=== PATIENT | male | born 1970 | race Caucasian/White ===

== ENCOUNTER 2019-06-30 22:23 | Emergency (ER) | payer MEDICAID ==
[~2019-06-30] VITALS: Ht 177.8 cm; Wt 94.0 kg
[2019-06-30] MEDS ORDERED: normal saline 1000ML IV soln IVB ONE (22:55)
[2019-06-30] MEDS ORDERED: ondansetron/PF 4mg/2ml inj IV ONE (22:55)
[2019-06-30 23:04] LABS: BASOPHILS # (AUTO) 0.1 X10'3 (0-0.2); BASOPHILS % (AUTO) 0.6 % (0-1); EOSINOPHILS # (AUTO) 0.2 X10'3 (0-0.9); EOSINOPHILS % (AUTO) 1.2 % (0-6); HEMATOCRIT 49.1 % (42.0-52.0); HEMOGLOBIN 16.9 g/dl (14.0-17.9); LYMPHOCYTES # (AUTO) 1.6 X10'3 (1.1-4.8); LYMPHOCYTES % (AUTO) 11.7 % (21-51); MEAN CORPUSCULAR HGB CONC 34.5 g/dL (33.0-36.5); MEAN CORPUSCULAR VOLUME 95.5 FL (78-98); MEAN PLATELET VOLUME 9.6 FL (7.4-10.4); MONOCYTES # (AUTO) 1.6 X10'3 (0-0.9); MONOCYTES % (AUTO) 11.8 % (2-12); NEUTROPHILS # (AUTO) 10.1 X10'3 (1.8-7.7); NEUTROPHILS % (AUTO) 74.7 % (42-75); PLATELET COUNT 349 X10'3 (140-440); RED BLOOD COUNT 5.14 X10'6 (4.70-6.10); RED CELL DISTRIBUTION WIDTH 14.4 % (11.5-14.5); WHITE BLOOD COUNT 13.6 X10'3 (4.5-11.0)
[2019-06-30 23:15] LABS: ALANINE AMINOTRANSFERASE 71 U/L (12-78); ALBUMIN 4.1 G/DL (3.4-5.0); ALBUMIN/GLOBULIN RATIO 0.9 (1.1-1.5); ALKALINE PHOSPHATASE 65 IU/L (46-116); ANION GAP 10 (8-16); ASPARTATE AMINO TRANSFERASE 58 U/L (10-37); BILIRUBIN,TOTAL 0.4 MG/DL (0.1-1.0); BLOOD UREA NITROGEN 15 MG/DL (7-18); BUN/CREATININE RATIO 16.3 (5.4-32.0); CALCIUM 9.4 MG/DL (8.5-10.1); CHLORIDE 105 MMOL/L (99-107); CREATININE 0.92 MG/DL (0.60-1.10); GLUCOSE 109 MG/DL (70-104); LIPASE 88 U/L (73-393); POTASSIUM 4.3 MMOL/L (3.5-5.1); SODIUM 139 MMOL/L (135-145); TOTAL CARBON DIOXIDE 23.8 MMOL/L (24-32); TOTAL PROTEIN 8.6 G/DL (6.4-8.2); eGFR 87 ML/MIN
[2019-06-30 23:47] LABS: CLARITY,URINE CLEAR (Clear); COLOR,URINE YELLOW (Yellow); GLUCOSE, URINE NEGATIVE (Neg); KETONES,URINE NEGATIVE (Neg); LEUKOCYTE ESTERASE ,URINE NEGATIVE (Neg); NITRITES, URINE NEGATIVE (Neg); OCCULT BLOOD,URINE NEGATIVE (Neg); PROTEIN,URINE NEGATIVE (Neg); UROBILINOGEN,URINE 0.2 E.U/dL (0.2-1.0)
[2019-06-30 23:48] LABS: UA COLLECTION TYPE CLN CATCH MIDSTREAM
[2019-07-01] MEDS ORDERED: ONDA8TAB13 PO (00:03)
[2019-07-01 00:13] VITALS: BP 132/88
== END 2019-07-01 00:20 | disposition home or self-care (01) ==
LOC: ER 22:23
DX: E86.0 Dehydration (principal); R10.13 Epigastric pain; R19.7 Diarrhea, unspecified; R11.2 Nausea with vomiting, unspecified; R10.10 Upper abdominal pain, unspecified; F10.99 Alcohol use, unspecified with unspecified alcohol-induced disorder; Z87.891 Personal history of nicotine dependence; Z79.899 Other long term (current) drug therapy; Y90.9 Presence of alcohol in blood, level not specified
CPT/HCPCS: 36415; 80053; 81003; 83690; 85025; 96361; 96374; 99283; J2405; J7030

== ENCOUNTER 2019-09-28 08:35 | Emergency (ER) | payer MEDICAID ==
[~2019-09-28] VITALS: Ht 180.3 cm; Wt 95.5 kg
[~2019-09-28 08:35] MED LIST: ONDA8TAB13 PO
[2019-09-28 08:36] VITALS: BP 152/106
--- NOTE | 2019-09-28 09:15 | NUR ---
Patient seen and assessed by provider.
[2019-09-28] MEDS ORDERED: CLIN-97 PO (09:22)
[2019-09-28] MEDS ORDERED: acetaminophen 325mg tablet PO ONE (09:25)
== END 2019-09-28 09:33 | disposition home or self-care (01) ==
LOC: ER 08:36
DX: K04.01 Reversible pulpitis (principal); Z98.890 Other specified postprocedural states; Z72.89 Other problems related to lifestyle; Z79.2 Long term (current) use of antibiotics
CPT/HCPCS: 99283

== ENCOUNTER 2021-12-17 07:33 | Emergency (ER) | payer MEDICAID ==
[~2021-12-17] VITALS: Ht 177.8 cm; Wt 97.7 kg
[~2021-12-17 07:33] MED LIST changes: +CLIN-97 PO
[2021-12-17 07:39] VITALS: BP 164/110
== END 2021-12-17 08:42 | disposition home or self-care (01) ==
LOC: ER 07:34
DX: M25.571 Pain in right ankle and joints of right foot (principal)
CPT/HCPCS: 99281

== ENCOUNTER 2023-01-14 19:27 | Emergency (ER) | payer MEDICAID ==
[~2023-01-14] VITALS: Ht 180.3 cm; Wt 91.8 kg
[2023-01-14 21:19] VITALS: BP 120/88; PULSE 86; RESP 20; TEMP 97.7; O2SAT 99
[2023-01-15] MEDS ORDERED: cephalexin 500mg capsule PO ONE (00:25)
[2023-01-15] MEDS ORDERED: sulfamethoxazole/trimethoprim DS (800/160mg) tablet PO ONE (00:25)
[2023-01-15] MEDS ORDERED: CEPH-585 PO (00:28)
[2023-01-15] MEDS ORDERED: SULF1TAB49 PO (00:28)
== END 2023-01-15 00:38 | disposition home or self-care (01) ==
LOC: ER 19:28
DX: L03.113 Cellulitis of right upper limb (principal); Z79.2 Long term (current) use of antibiotics
CPT/HCPCS: 99283

== ENCOUNTER 2023-07-06 13:37 | Inpatient (IN) | payer MEDICAID ==
[~2023-07-06] VITALS: Ht 182.9 cm; Wt 92.9 kg
[~2023-07-06 13:37] MED LIST changes: +CEPH-585 PO
[2023-07-06 14:02] LABS: MEAN CORPUSCULAR HEMOGLOBIN 32.1 PG (27.0-31.0)
[2023-07-06 14:03] LABS: BASOPHILS # (AUTO) 0.1 X10'3 (0-0.2); BASOPHILS % (AUTO) 0.8 % (0-1); EOSINOPHILS % (AUTO) 0.2 % (0-6); HEMATOCRIT 42.6 % (42.0-52.0); HEMOGLOBIN 14.4 g/dl (14.0-17.9); LYMPHOCYTES # (AUTO) 1.5 X10'3 (1.1-4.8); LYMPHOCYTES % (AUTO) 15.5 % (21-51); MEAN CORPUSCULAR HGB CONC 33.9 g/dL (33.0-36.5); MEAN CORPUSCULAR VOLUME 94.7 FL (78-98); MEAN PLATELET VOLUME 9.3 FL (7.4-10.4); MONOCYTES # (AUTO) 1.3 X10'3 (0-0.9); MONOCYTES % (AUTO) 13.1 % (2-12); NEUTROPHILS # (AUTO) 6.8 X10'3 (1.8-7.7); NEUTROPHILS % (AUTO) 70.4 % (42-75); PLATELET COUNT 144 X10'3 (140-440); RED CELL DISTRIBUTION WIDTH 15.9 % (11.5-14.5); WHITE BLOOD COUNT 9.6 X10'3 (4.5-11.0)
[2023-07-06 14:26] LABS: ALBUMIN 3.6 G/DL (3.4-5.0); ANION GAP 20 (8-16); BLOOD UREA NITROGEN 15 MG/DL (7-18); BUN/CREATININE RATIO 15.6 (10.0-20.0); CALCIUM 8.5 MG/DL (8.5-10.1); CHLORIDE 102 MMOL/L (99-107); CREATININE 0.96 MG/DL (0.60-1.10); GLUCOSE 156 MG/DL (70-104); PRO BRAIN NATRIURETIC PEPTIDE 104 PG/ML (0-125); SODIUM 139 MMOL/L (135-145); TOTAL CARBON DIOXIDE 17.1 MMOL/L (24-32); eCRCL 95 ML/MIN; eGFR 82 ML/MIN
[2023-07-06 14:28] LABS: POTASSIUM 3.9 MMOL/L (3.5-5.1)
[2023-07-06] MEDS: ondansetron/PF 4mg/2ml inj IV ONE (14:35)
[2023-07-06] MEDS: LORazepam 2 mg/ml vial IV ONE (14:36)
[2023-07-06] MEDS: normal saline 1000ml 1,000 ML IV ONE ×3 (14:36→14:52)
[2023-07-06] MEDS: naloxone 0.4 mg/ml inj IV ONE (14:46)
[2023-07-06 15:36] LABS: BILIRUBIN,URINE NEGATIVE (Neg); CLARITY,URINE CLEAR (Clear); COLOR,URINE YELLOW (Yellow); GLUCOSE, URINE NEGATIVE (Neg); KETONES,URINE 40 mg/dl (Neg); LEUKOCYTE ESTERASE ,URINE NEGATIVE (Neg); NITRITES, URINE NEGATIVE (Neg); OCCULT BLOOD,URINE SMALL (Neg); PROTEIN,URINE 30 mg/dl (Neg); UROBILINOGEN,URINE 0.2 E.U/dL (0.2-1.0)
[2023-07-06] MEDS ORDERED: iohexol 350MG/ML 100ml bottle IV ONE (15:52)
[2023-07-06 16:21] LABS: UA COLLECTION TYPE CLN CATCH MIDSTREAM
[2023-07-06 16:26] LABS: BACTERIA,URINE NONE SEEN /HPF (Neg); RBC,URINE 0-2 /HPF (0-2); SQUAMOUS EPITHELIAL CELL,UR NONE SEEN /LPF (FEW)
[2023-07-06 16:27] LABS: WBC,URINE 0-4 /HPF (0-4)
[2023-07-06] MEDS: azithromycin/NS 500mg/250ml 250 ML IV SCH (18:07)
[2023-07-06] MEDS: CefTRIAXone 2gm/D5W 50ml BAG 50 ML IV SCH (18:08)
[2023-07-06] MEDS ORDERED: magnesium Cl slow-release 64mg tablet PO PRN (18:20)
[2023-07-06] MEDS ORDERED: ondansetron/PF 4mg/2ml inj IV PRN (18:20)
[2023-07-06] MEDS ORDERED: haloperidol lactate 5mg/ml inj IM PRN (18:20)
[2023-07-06] MEDS ORDERED: acetaminophen 325mg tablet PO PRN (18:20)
[2023-07-06] MEDS ORDERED: metoclopramide 5 mg/ml inj IV PRN (18:20)
[2023-07-06] MEDS ORDERED: mag hydrox/Alum hydrox/simeth 30ml oral suspension PO PRN (18:20)
[2023-07-06] MEDS ORDERED: potassium Cl 20 mEq SR tablet PO PRN (18:20)
[2023-07-06] MEDS ORDERED: dextrose 50%-water 50ml dispensing syringe IV PRN (18:20)
[2023-07-06] MEDS: nicotine 21mg patch - 24 hr TD SCH (18:20)
[2023-07-06] MEDS ORDERED: magnesium hydroxide 30ml (MOM) UD suspension PO PRN (18:20)
[2023-07-06] MEDS ORDERED: magnesium 2GM in 50ml NS 50 ML IV PRN (18:20)
[2023-07-06] MEDS ORDERED: magnesium 4gm in 100ml NS 100 ML IV PRN (18:20)
[2023-07-06] MEDS ORDERED: potassium Cl 40MEQ/1/2NS 520ml 520 ML IV PRN (18:20)
[2023-07-06 18:23] LABS: ALANINE AMINOTRANSFERASE 85 U/L (12-78); ALBUMIN/GLOBULIN RATIO 0.8 (1.1-1.5); ALKALINE PHOSPHATASE 67 IU/L (46-116); ASPARTATE AMINO TRANSFERASE 106 U/L (10-37); BILIRUBIN,DIRECT 0.2 MG/DL (0-0.3); BILIRUBIN,TOTAL 1.1 MG/DL (0.1-1.0)
[2023-07-06 19:06] LABS: URINE AMPHETAMINE SCREEN POSITIVE (Neg); URINE BARBITUATE SCREEN NEGATIVE (Neg); URINE BENZODIAZEPINES SCREEN NEGATIVE (Neg); URINE CANNABINOID SCREEN NEGATIVE (Neg); URINE COCAINE SCREEN NEGATIVE (Neg); URINE METHADONE SCREEN NEGATIVE (Neg); URINE OPIATE SCREEN NEGATIVE (Neg); URINE PHENCYCLIDINE SCREEN NEGATIVE (Neg)
[2023-07-06 19:13] LABS: MAGNESIUM 1.6 MG/DL (1.5-2.4); POTASSIUM 3.2 MMOL/L (3.5-5.1)
[2023-07-06] MEDS: K and/or MAG REPLACEMENT MC SCH (20:00)
[2023-07-06] MEDS: docusate sod 100mg capsule PO SCH (20:00)
[2023-07-06] MEDS: normal saline 1000ml 1,000 ML IV SCH (20:20)
[2023-07-06] MEDS: LORazepam 2 mg/ml vial IV PRN (20:21)
[2023-07-06] MEDS: heparin, porcine 5000 units/ml vial SQ SCH (20:21)
[2023-07-06] MEDS: thiamine 100mg/ml 2ml inj. IV SCH (20:21)
[2023-07-06] MEDS: potassium Cl 20 mEq SR tablet PO PRN (20:22)
[2023-07-07] VITALS (8 sets, daily range): BP systolic 130–157; BP diastolic 83–102; PULSE 83–103; RESP 14–19; TEMP 97.9–98.6; O2SAT 94–99
[2023-07-07] MEDS: HYDROcodone/acetaminophen 5mg/325mg tablet PO PRN (01:23)
[2023-07-07 07:01] LABS: BASOPHILS % (AUTO) 0.7 % (0-1); EOSINOPHILS # (AUTO) 0.1 X10'3 (0-0.9); EOSINOPHILS % (AUTO) 1.2 % (0-6); LYMPHOCYTES # (AUTO) 1.4 X10'3 (1.1-4.8); LYMPHOCYTES % (AUTO) 20.6 % (21-51); MEAN CORPUSCULAR HEMOGLOBIN 32.2 PG (27.0-31.0); MEAN CORPUSCULAR HGB CONC 34.2 g/dL (33.0-36.5); MEAN CORPUSCULAR VOLUME 94.3 FL (78-98); MEAN PLATELET VOLUME 9.4 FL (7.4-10.4); MONOCYTES # (AUTO) 1.1 X10'3 (0-0.9); MONOCYTES % (AUTO) 15.7 % (2-12); NEUTROPHILS # (AUTO) 4.2 X10'3 (1.8-7.7); NEUTROPHILS % (AUTO) 61.8 % (42-75); PLATELET COUNT 104 X10'3 (140-440); RED BLOOD COUNT 4.03 X10'6 (4.70-6.10); RED CELL DISTRIBUTION WIDTH 15.3 % (11.5-14.5); WHITE BLOOD COUNT 6.8 X10'3 (4.5-11.0)
[2023-07-07 07:36] LABS: ALANINE AMINOTRANSFERASE 70 U/L (12-78); ALBUMIN 2.9 G/DL (3.4-5.0); ALBUMIN/GLOBULIN RATIO 0.7 (1.1-1.5); ALKALINE PHOSPHATASE 55 IU/L (46-116); ANION GAP 10 (8-16); ASPARTATE AMINO TRANSFERASE 100 U/L (10-37); BILIRUBIN,TOTAL 1.5 MG/DL (0.1-1.0); BLOOD UREA NITROGEN 9 MG/DL (7-18); BUN/CREATININE RATIO 13.8 (10.0-20.0); CALCIUM 7.6 MG/DL (8.5-10.1); CHLORIDE 104 MMOL/L (99-107); CREATININE 0.65 MG/DL (0.60-1.10); GLUCOSE 94 MG/DL (70-104); MAGNESIUM 2.1 MG/DL (1.5-2.4); POTASSIUM 3.3 MMOL/L (3.5-5.1); SODIUM 137 MMOL/L (135-145); TOTAL CARBON DIOXIDE 22.7 MMOL/L (24-32); eCRCL 144 ML/MIN; eGFR > 90 ML/MIN
[2023-07-07] MEDS: folic acid 1mg/0.2ml inj IV SCH (08:00)
[2023-07-07] MEDS: lisinopril 10 MG tablet PO SCH (08:39)
[2023-07-07] MEDS: HYDROcodone/acetaminophen 10/325mg tab PO PRN (13:59)
[2023-07-07] MEDS: LORazepam 2 mg/ml vial IV PRN (16:20)
[2023-07-08 02:00] VITALS: BP 137/84; PULSE 77; RESP 18; TEMP 97.8; O2SAT 95
[2023-07-08 05:44] LABS: BASOPHILS # (AUTO) 0.1 X10'3 (0-0.2); BASOPHILS % (AUTO) 1.3 % (0-1); EOSINOPHILS # (AUTO) 0.1 X10'3 (0-0.9); EOSINOPHILS % (AUTO) 1.8 % (0-6); HEMATOCRIT 38.5 % (42.0-52.0); HEMOGLOBIN 13.4 g/dl (14.0-17.9); LYMPHOCYTES # (AUTO) 1.5 X10'3 (1.1-4.8); LYMPHOCYTES % (AUTO) 29.1 % (21-51); MEAN CORPUSCULAR HEMOGLOBIN 32.8 PG (27.0-31.0); MEAN CORPUSCULAR HGB CONC 34.8 g/dL (33.0-36.5); MEAN CORPUSCULAR VOLUME 94.2 FL (78-98); MEAN PLATELET VOLUME 9.7 FL (7.4-10.4); MONOCYTES # (AUTO) 0.9 X10'3 (0-0.9); NEUTROPHILS # (AUTO) 2.7 X10'3 (1.8-7.7); NEUTROPHILS % (AUTO) 50.8 % (42-75); PLATELET COUNT 101 X10'3 (140-440); RED BLOOD COUNT 4.09 X10'6 (4.70-6.10); RED CELL DISTRIBUTION WIDTH 15.3 % (11.5-14.5); WHITE BLOOD COUNT 5.2 X10'3 (4.5-11.0)
[2023-07-08 06:00] VITALS: BP 153/93; PULSE 76; RESP 16; TEMP 98.1; O2SAT 97
[2023-07-08 06:01] LABS: ALANINE AMINOTRANSFERASE 66 U/L (12-78); ALBUMIN 2.8 G/DL (3.4-5.0); ALBUMIN/GLOBULIN RATIO 0.7 (1.1-1.5); ALKALINE PHOSPHATASE 57 IU/L (46-116); ANION GAP 8 (8-16); ASPARTATE AMINO TRANSFERASE 81 U/L (10-37); BILIRUBIN,TOTAL 0.8 MG/DL (0.1-1.0); BLOOD UREA NITROGEN 13 MG/DL (7-18); BUN/CREATININE RATIO 16.9 (10.0-20.0); CALCIUM 8.3 MG/DL (8.5-10.1); CHLORIDE 107 MMOL/L (99-107); CREATININE 0.77 MG/DL (0.60-1.10); GLUCOSE 98 MG/DL (70-104); POTASSIUM 4.3 MMOL/L (3.5-5.1); SODIUM 137 MMOL/L (135-145); TOTAL CARBON DIOXIDE 22.4 MMOL/L (24-32); eCRCL 122 ML/MIN; eGFR > 90 ML/MIN
[2023-07-08 08:26] LABS: ANISOCYTOSIS 1+; PLATELET ESTIMATE DECREASED; TOTAL CELLS COUNTED 100
[2023-07-08] MEDS ORDERED: LORA-269 PO (11:16)
[2023-07-11] MEDS ORDERED: folic acid 1mg tablet PO SCH (08:00)
[2023-07-11] MEDS ORDERED: thiamine 100mg tablet PO SCH (08:00)
== END 2023-07-08 14:00 | disposition home or self-care (01) | DRG 812 ==
LOC: ER 13:37 → ED HOLD 18:21 → PCU 3S 23:59
PROVIDERS: ADMIT Internal Medicine; ATTEND Internal Medicine
PROC: B32T1ZZ Computerized Tomography (CT Scan) of Left Pulmonary Artery using Low Osmolar Contrast (ICD-10-PCS; principal; 2023-07-06)
PROC: B3201ZZ Computerized Tomography (CT Scan) of Thoracic Aorta using Low Osmolar Contrast (ICD-10-PCS; 2023-07-06)
PROC: B32S1ZZ Computerized Tomography (CT Scan) of Right Pulmonary Artery using Low Osmolar Contrast (ICD-10-PCS; 2023-07-06)
DX: T43.651A Poisoning by methamphetamines accidental (unintentional), initial encounter (principal); J96.01 Acute respiratory failure with hypoxia; G92.8 Other toxic encephalopathy; J18.9 Pneumonia, unspecified organism; E87.20 Acidosis, unspecified; G40.509 Epileptic seizures related to external causes, not intractable, without status epilepticus; I10 Essential (primary) hypertension; J98.11 Atelectasis; F15.10 Other stimulant abuse, uncomplicated; R91.8 Other nonspecific abnormal finding of lung field; G93.89 Other specified disorders of brain; K57.30 Diverticulosis of large intestine without perforation or abscess without bleeding; F10.129 Alcohol abuse with intoxication, unspecified; Y90.9 Presence of alcohol in blood, level not specified; Z20.822 Contact with and (suspected) exposure to COVID-19; K76.0 Fatty (change of) liver, not elsewhere classified; F17.210 Nicotine dependence, cigarettes, uncomplicated; Z59.00 Homelessness unspecified; Y92.89 Other specified places as the place of occurrence of the external cause; T51.0X1A Toxic effect of ethanol, accidental (unintentional), initial encounter
CPT/HCPCS: 36415; 70450; 70551; 71045; 71275; 74177; 80048; 80053; 80076; 80177; 80305; 81001; 82140; 82948; 83605; 83735; 83880; 84132; 84145; 84484; 85007; 85025; 87040; 87081; 87502; 87503; 87811; 92508; 92616; 93005; 93306; 99285; A4615; C1758; G0378; J0456; J0696; J1644; J2060; J2310; J2405; J3411; J3490; J7030; Q9967

== ENCOUNTER → 2023-08-22 | Emergency (ER) | payer MEDICAID ==
[~2023-08-22] VITALS: Ht 180.3 cm; Wt 90.8 kg
[~2023-08-22] MED LIST changes: -CEPH-585 PO; -CLIN-97 PO; +LORA-269 PO; -ONDA8TAB13 PO
[2023-08-22 13:53] VITALS: BP 141/84; PULSE 95; RESP 16; TEMP 98.5; O2SAT 97
== END | disposition home or self-care (01) ==
LOC: ER 13:21
DX: F19.10 Other psychoactive substance abuse, uncomplicated (principal); F12.90 Cannabis use, unspecified, uncomplicated; F15.20 Other stimulant dependence, uncomplicated; Z79.899 Other long term (current) drug therapy
CPT/HCPCS: 99281

== ENCOUNTER 2023-11-11 16:51 | Emergency (ER) | payer MEDICAID ==
[~2023-11-11] VITALS: Ht 180.3 cm; Wt 90.0 kg
[2023-11-11 17:03] VITALS: BP 152/101; PULSE 83; RESP 16; TEMP 98.7; O2SAT 98
[2023-11-11] MEDS ORDERED: ONDA4TAB12 PO (17:35)
== END 2023-11-11 17:52 | disposition home or self-care (01) ==
LOC: ER 16:53
DX: F10.129 Alcohol abuse with intoxication, unspecified (principal); F15.90 Other stimulant use, unspecified, uncomplicated; F12.90 Cannabis use, unspecified, uncomplicated; Z79.899 Other long term (current) drug therapy; Y90.9 Presence of alcohol in blood, level not specified
CPT/HCPCS: 99283

== ENCOUNTER 2024-01-14 11:08 | Emergency (ER) | payer MEDICAID ==
[~2024-01-14] VITALS: Ht 180.3 cm; Wt 93.5 kg
[~2024-01-14 11:08] MED LIST changes: +ONDA-243 PO
[2024-01-14 12:10] LABS: BASOPHILS # (AUTO) 0.1 X10'3 (0-0.2); BASOPHILS % (AUTO) 0.7 % (0-1); EOSINOPHILS % (AUTO) 0.4 % (0-6); HEMATOCRIT 47.2 % (42.0-52.0); HEMOGLOBIN 16.1 g/dl (14.0-17.9); LYMPHOCYTES # (AUTO) 1.5 X10'3 (1.1-4.8); LYMPHOCYTES % (AUTO) 19.6 % (21-51); MEAN CORPUSCULAR HEMOGLOBIN 34.5 PG (27.0-31.0); MEAN CORPUSCULAR HGB CONC 34.2 g/dL (33.0-36.5); MEAN PLATELET VOLUME 9.4 FL (7.4-10.4); MONOCYTES # (AUTO) 1.3 X10'3 (0-0.9); MONOCYTES % (AUTO) 16.6 % (2-12); NEUTROPHILS # (AUTO) 4.9 X10'3 (1.8-7.7); NEUTROPHILS % (AUTO) 62.7 % (42-75); PLATELET COUNT 188 X10'3 (140-440); RED BLOOD COUNT 4.67 X10'6 (4.70-6.10); RED CELL DISTRIBUTION WIDTH 14.7 % (11.5-14.5); WHITE BLOOD COUNT 7.8 X10'3 (4.5-11.0)
[2024-01-14 12:24] LABS: ALANINE AMINOTRANSFERASE 94 U/L (12-78); ALBUMIN 3.7 G/DL (3.4-5.0); ALBUMIN/GLOBULIN RATIO 0.8 (1.1-1.5); ALKALINE PHOSPHATASE 70 IU/L (46-116); AMYLASE 35 U/L (25-115); ANION GAP 10 (8-16); ASPARTATE AMINO TRANSFERASE 122 U/L (10-37); BILIRUBIN,TOTAL 0.9 MG/DL (0.1-1.0); BLOOD UREA NITROGEN 6 MG/DL (7-18); BUN/CREATININE RATIO 6.9 (10.0-20.0); CALCIUM 8.9 MG/DL (8.5-10.1); CHLORIDE 102 MMOL/L (99-107); CREATININE 0.87 MG/DL (0.60-1.10); ETHANOL < 10 MG/DL (<10); GLUCOSE 139 MG/DL (70-104); LIPASE 17 U/L (16-77); SODIUM 139 MMOL/L (135-145); TOTAL CARBON DIOXIDE 27.5 MMOL/L (24-32); TOTAL PROTEIN 8.3 G/DL (6.4-8.2); eCRCL 103 ML/MIN; eGFR > 90 ML/MIN
[2024-01-14 12:27] LABS: POTASSIUM 3.8 MMOL/L (3.5-5.1)
[2024-01-14 12:30] LABS: PLATELET ESTIMATE NORMAL; TOTAL CELLS COUNTED 100
[2024-01-14 12:40] VITALS: TEMP 98.4
[2024-01-14 13:17] LABS: BILIRUBIN,URINE NEGATIVE (Neg); CLARITY,URINE CLEAR (Clear); COLOR,URINE YELLOW (Yellow); GLUCOSE, URINE NEGATIVE (Neg); KETONES,URINE NEGATIVE (Neg); LEUKOCYTE ESTERASE ,URINE NEGATIVE (Neg); NITRITES, URINE NEGATIVE (Neg); OCCULT BLOOD,URINE NEGATIVE (Neg); PROTEIN,URINE NEGATIVE (Neg); UROBILINOGEN,URINE 0.2 E.U/dL (0.2-1.0)
[2024-01-14 13:19] LABS: UA COLLECTION TYPE CLN CATCH MIDSTREAM
[2024-01-14] MEDS: LORazepam 1 MG tablet PO ONE (14:20)
[2024-01-14] MEDS: cloNIDine 0.1 mg tablet PO ONE (14:28)
[2024-01-14 14:30] LABS: BASOPHILS # (AUTO) 0.1 X10'3 (0-0.2); BASOPHILS % (AUTO) 0.9 % (0-1); EOSINOPHILS % (AUTO) 0.3 % (0-6); HEMATOCRIT 45.4 % (42.0-52.0); HEMOGLOBIN 15.5 g/dl (14.0-17.9); LYMPHOCYTES # (AUTO) 1.2 X10'3 (1.1-4.8); LYMPHOCYTES % (AUTO) 16.9 % (21-51); MEAN CORPUSCULAR HEMOGLOBIN 34.4 PG (27.0-31.0); MEAN CORPUSCULAR HGB CONC 34.2 g/dL (33.0-36.5); MEAN CORPUSCULAR VOLUME 100.8 FL (78-98); MEAN PLATELET VOLUME 9.5 FL (7.4-10.4); MONOCYTES # (AUTO) 1.1 X10'3 (0-0.9); MONOCYTES % (AUTO) 15.4 % (2-12); NEUTROPHILS # (AUTO) 4.8 X10'3 (1.8-7.7); NEUTROPHILS % (AUTO) 66.5 % (42-75); PLATELET COUNT 170 X10'3 (140-440); RED CELL DISTRIBUTION WIDTH 14.5 % (11.5-14.5); WHITE BLOOD COUNT 7.2 X10'3 (4.5-11.0)
[2024-01-14 14:37] LABS: PROTHROMBIN TIME 11.2 SECONDS (9.0-12.0)
[2024-01-14 14:46] LABS: CREATINE KINASE 308 U/L (39-308); MAGNESIUM 1.5 MG/DL (1.5-2.4); PHOSPHORUS 2.5 MG/DL (2.3-4.5)
[2024-01-14 15:19] LABS: TOTAL CELLS COUNTED 100
[2024-01-14 15:20] LABS: PLATELET ESTIMATE NORMAL
[2024-01-14 15:36] LABS: URINE AMPHETAMINE SCREEN POSITIVE (Neg); URINE BARBITUATE SCREEN NEGATIVE (Neg); URINE BENZODIAZEPINES SCREEN NEGATIVE (Neg); URINE CANNABINOID SCREEN POSITIVE (Neg); URINE COCAINE SCREEN NEGATIVE (Neg); URINE METHADONE SCREEN NEGATIVE (Neg); URINE OPIATE SCREEN NEGATIVE (Neg); URINE PHENCYCLIDINE SCREEN NEGATIVE (Neg)
[2024-01-14] MEDS ORDERED: GABA300C PO (17:22)
[2024-01-14 18:09] VITALS: BP 180/121; PULSE 83; RESP 19; O2SAT 95
== END 2024-01-14 18:12 | disposition home or self-care (01) ==
LOC: ER 11:09
DX: F15.10 Other stimulant abuse, uncomplicated (principal); F12.90 Cannabis use, unspecified, uncomplicated; R79.1 Abnormal coagulation profile; Z79.899 Other long term (current) drug therapy
CPT/HCPCS: 36415; 80053; 80305; 80320; 81003; 82150; 82550; 83690; 83735; 84100; 84484; 85007; 85025; 85610; 99285; J7030